=== PATIENT | female | born 1975 | race African-American/Black ===

== ENCOUNTER 2016-11-05 16:44 | Emergency (ER) | payer OTHER ==
[2016-11-05 16:53] VITALS: BP 130/72; PULSE 70; TEMP 98.7; BMI 25.9
--- NOTE | 2016-11-05 19:31 | PDOC ---
History of Present Illness - General Chief Complaint: Cold Symptoms Stated Complaint: ASTHMA/DIFF BREATHING Time Seen by Provider: 11/05/16 17:12 History Source: Patient Exam Limitations: No Limitations - History of Present Illness Initial Comments: 11/05/16 19:30 Chief complaint: Nasal congestion, productive cough greenish yellow for 5 days intermittent wheezing with shortness of breath History of present illness: Patient is a 41-year-old female with a history of asthma and PCOS here today complaining of having nasal congestion with clots sensation of bilateral ears and productive cough with greenish yellow sputum for 5 days with intermittent wheezing and shortness of breath. Patient reports that she used her albuterol pump more than usual the last few days however today she is feeling better. Patient denies any wheezing or shortness of breath presently. Patient denies having any fever. Patient reports being hospitalized in the past due to her asthma. Timing/Duration: changing over time Severity: moderate Associated Symptoms: reports: cough (productive thick greenish, yellow), shortness of breath (intermittent ), other (wheezing ) Past History - Past Medical History Allergies/Adverse Reactions: Allergies Allergy/AdvReac Type Severity Reaction Status Date / Time No Known Allergies Allergy Verified 11/05/16 16:53 Home Medications: Ambulatory Orders Albuterol Sulfate Inhaler - [Ventolin HFA Inhaler -] 2 inh IH Q4H PRN #1 inhaler MDD 6 11/05/16 Azithromycin [Zithromax 250mg Tablets -] 250 mg PO UTDICT #6 tab 11/05/16 Fexofenadine HCl [Teri Allergy] 180 mg PO DAILY #10 tablet MDD 1 11/05/16 Fluticasone Prop 0.05% Nasal [Flonase] 2 spray NS DAILY #1 spraybtl MDD 1 Asthma: Yes 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) Other medical history: PCOS - Surgical History Appendectomy: Yes - Immunization History Td Vaccination: Yes Immunization Up to Date: Yes - Psycho/Social/Smoking Cessation Hx Anxiety: No Suicidal Ideation: No Smoking Status: No Smoking History: Never smoked Number of Cigarettes Smoked Daily: 0 Hx Alcohol Use: Yes (SOCIAL) Drug/Substance Use Hx: No Substance Use Type: None Review of Systems - Review of Systems Able to Perform ROS?: Yes Constitutional: No: Symptoms Reported HEENTM: Yes: Nose Congestion Respiratory: Yes: Shortness of Breath (intermittent none presently ), Wheezing ( intermittent none presently ), Productive cough (yellowish green for 5 days) Cardiac (ROS): No: Symptoms Reported ABD/GI: No: Symptoms Reported : No: Symptoms Reported Musculoskeletal: No: Symptoms Reported Integumentary: No: Symptoms Reported Neurological: No: Symptoms reported *Physical Exam - Vital Signs Last Vital Signs Temp Pulse Resp BP Pulse Ox 98.7 F 70 20 130/72 99 11/05/16 16:50 11/05/16 16:50 11/05/16 16:50 11/05/16 16:50 11/05/16 16:50 - Physical Exam General Appearance: Yes: Appropriately Dressed HEENT: positive: TMs Normal, Nasal Congestion (left nostril superior turbinate edema ). negative: Pharyngeal Erythema, Tonsillar Exudate, Tonsillar Erythema, Rhinorrhea, Sinus Tenderness Neck: negative: Lymphadenopathy (R), Lymphadenopathy (L) Respiratory/Chest: positive: Lungs Clear, Normal Breath Sounds. negative: Chest Tender, Respiratory Distress Cardiovascular: positive: Regular Rhythm, Regular Rate, S1, S2 Integumentary: positive: Normal Color Neurologic: positive: Alert, Normal Response Medical Decision Making - Medical Decision Making 11/05/16 19:31 Patient is a 41-year-old female with a history of asthma and PCOS here today complaining of having nasal congestion with clots sensation of bilateral ears and productive cough with greenish yellow sputum for 5 days with intermittent wheezing and shortness of breath. Patient reports that she used her albuterol pump more than usual the last few days however today she is feeling better. Patient denies any wheezing or shortness of breath presently. Patient denies having any fever. Patient reports being hospitalized in the past due to her asthma. Bronchitis, nasal congestion, left sided, asthma ' PLAN: Ventolin HFA 2 puffs every 4 hours as needed for shortness of breath or wheezing Flonase 2 sprays in left nostril daily 10 days Azithromycin 250 mg 2 tabs today and one tab daily for the following 4 days Teri 180 mg daily 10 days *DC/Admit/Observation/Transfer Diagnosis at time of Disposition: Bronchitis, Nasal congestion Asthma Qualifiers: Asthma severity: moderate persistent Asthma complication type: with acute exacerbation Qualified Code(s): J45.41 - Moderate persistent asthma with (acute ) exacerbation - Discharge Dispostion Disposition: HOME Condition at time of disposition: Stable - Prescriptions Prescriptions: Fexofenadine HCl [Teri Allergy] 180 mg PO DAILY #10 tablet MDD 1 Fluticasone Prop 0.05% Nasal [Flonase] 2 spray NS DAILY #1 spraybtl MDD 1 Albuterol Sulfate Inhaler - [Ventolin HFA Inhaler -] 2 inh IH Q4H PRN #1 inhaler MDD 6 PRN Reason: Short Of Breath/Wheezing Azithromycin [Zithromax 250mg Tablets -] 250 mg PO UTDICT #6 tab - Patient Instructions Additional Instructions: Follow-up with your primary care provider within the next few days Return to emergency room if any difficulty breathing Drink a lot a fluids Put humidifier in her bedroom next few Patient voiced understanding of discharge instructions and all questions were answered
== END 2016-11-05 19:38 | disposition home or self-care (01) ==
LOC: JERFT 16:44
DX: J45.41 Moderate persistent asthma with (acute) exacerbation (principal); J20.9 Acute bronchitis, unspecified; E28.2 Polycystic ovarian syndrome
CPT/HCPCS: 99281-25

== ENCOUNTER 2017-07-23 14:53 | Emergency (ER) | payer OTHER ==
[2017-07-23 15:00] VITALS: BP 97/61; PULSE 87; TEMP 98.4; BMI 25.4
--- NOTE | 2017-07-23 18:13 | PDOC ---
History of Present Illness - General Chief Complaint: Head/Neck problem Stated Complaint: NUMBNESS ON LEFT SIDE Time Seen by Provider: 07/23/17 15:03 History Source: Patient Exam Limitations: No Limitations - History of Present Illness Initial Comments: 07/23/17 18:09 Patient is a 41-year-old female, presents emergency Department with numbness to left arm. Patient reports that she was taking out her ming in her hair for approximately 20 minutes and started to feel funny, with good range of motion to left arm with numbness. Denies any chest pain or shortness of breath, no dizziness, no visual disturbance Past Medical History: Denies. Allergies: No known allergies Medications: None Family History: Non-contributory Social History: Denies smoking, alcohol use, or IVDU Review of Systems GENERAL/CONSTITUTIONAL: No fever or chills. No weakness. No weight change. HEAD, EYES, EARS, NOSE AND THROAT: No change in vision. No ear pain or discharge. No sore throat. CARDIOVASCULAR: No chest pain or shortness of breath. RESPIRATORY: No cough, wheezing, or hemoptysis. GASTROINTESTINAL: No nausea, vomiting, diarrhea or constipation. No rectal bleeding. GENITOURINARY: No dysuria, frequency, or change in urination. MUSCULOSKELETAL: No joint or muscle swelling or pain. No neck or back pain. Numbness to left arm SKIN No rash or easy bruising. NEUROLOGIC: No headache, vertigo, loss of consciousness, or loss of sensation. PSYCHIATRIC: No depression or anxiety. ENDOCRINE: No increased thirst. No abnormal weight change. HEMATOLOGIC/LYMPHATIC: No anemia, easy bleeding, or history of blood clots. ALLERGIC/IMMUNOLOGIC: No hives or skin allergy. No latex allergy. Physical Exam: GENERAL: The patient is awake, alert, and fully oriented, in no acute distress. HEAD: Normal with no signs of trauma. EYES: Pupils equal, round and reactive to light, extraocular movements intact, sclera anicteric, conjunctiva clear. ENT: Ears normal, nares patent, oropharynx clear without exudates. Moist mucous membranes. No uvula deviation NECK: Normal range of motion, supple without lymphadenopathy, JVD, or masses. LUNGS: Breath sounds equal, clear to auscultation bilaterally. No wheezes, and no crackles. HEART: Regular rate and rhythm, normal S1 and S2 without murmur, rub or gallop. ABDOMEN: Soft, nontender, normoactive bowel sounds. No guarding, no rebound. No masses. No bruising or abrasions RECTAL : Guaiac negative, normal rectal tone. MUSCULOSKELETAL: Normal range of motion, no edema. No clubbing or cyanosis. No cords, erythema, or tenderness. No CVA Tenderness with fist. NEUROLOGICAL: Cranial nerves II through XII grossly intact. Normal speech, normal gait. PSYCH: Normal mood, normal affect. SKIN: Warm, Dry, normal turgor, no rashes or lesions noted. 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) - Surgical History Appendectomy: Yes - Immunization History Td Vaccination: Yes Immunization Up to Date: Yes - Suicide/Smoking/Psychosocial Hx Smoking Status: No Smoking History: Never smoked Have you smoked in the past 12 months: No Number of Cigarettes Smoked Daily: 0 Information on smoking cessation initiated: No Hx Alcohol Use: No Drug/Substance Use Hx: No Substance Use Type: None, Marijuana *Physical Exam - Vital Signs Last Vital Signs Temp Pulse Resp BP Pulse Ox 98.4 F 87 18 97/61 100 07/23/17 14:56 07/23/17 14:56 07/23/17 14:56 07/23/17 14:56 07/23/17 14:56 ED Treatment Course - ADDITIONAL ORDERS Additional order review: Laboratory Results 07/23/17 15:22 Urine HCG, Qual Negative - RADIOLOGY Radiology Studies Ordered: Category Date Time Status CERVICAL SPINE CT W/O CONTR [CT] Stat CT Scan 07/23/17 15:[address] WITHOUT CONTRAST [CT] Stat CT Scan 07/23/17 15:32 Completed Medical Decision Making - Medical Decision Making 10/15/17 18:13 A/P: Patient here for numbness to left arm highly suspicious for plexus injury however urine sent and negative, patient sent to CT scan of head and neck. Head CT is negative for acute intracranial pathology, CT of neck demonstrated degenerative disc and endplate changes at the C6-C7 level with resulting body canal or foraminal stenosis. Visualization of detail of the contents of the cervical canal was limited by artifact. Recommended MRI. She has straightening of the normal lordotic curve of the cervical spine and no evidence of fracture or subluxation. Patient states that the feeling to her hand this coming back based upon clinical examination may be plexus injury versus disc space narrowing. To follow -up with orthopedics. Adela for pain. *DC/Admit/Observation/Transfer Diagnosis at time of Disposition: Nerve plexus injury - Discharge Dispostion Disposition: HOME Condition at time of disposition: Good Admit: No - Referrals Referrals: Rachel Ortiz MD [Primary Care Provider] - - Patient Instructions Additional Instructions: Please refrain from lifting arm above head Recommend follow up with ortho for evaluation of neck. If any increased pain, numbness or tingling, or any other concerns return to ER
== END 2017-07-23 18:45 | disposition home or self-care (01) ==
LOC: JERFT 14:53
DX: S14.3XXA Injury of brachial plexus, initial encounter (principal); X58.XXXA Exposure to other specified factors, initial encounter; Y93.89 Activity, other specified; Y92.038 Other place in apartment as the place of occurrence of the external cause; J45.909 Unspecified asthma, uncomplicated; E28.2 Polycystic ovarian syndrome
CPT/HCPCS: 70450-TC; 72125-TC; 84703; 99281-25

== ENCOUNTER 2019-05-18 13:33 | Emergency (ER) | payer OTHER | END 2019-05-18 14:31 | disposition home or self-care (01) | LOC: JERFT 13:33 ==